=== PATIENT | male | born 2000 | race Caucasian/White ===

== ENCOUNTER 2020-01-03 20:34 | Emergency (ER) | payer SELFPAY ==
[2020-01-03 21:17] LABS: Absolute Lymphocytes (CBC) 1.8 K/uL (0.7-4.9); Basophils % 0.4 % (0-1.3); Hematocrit 43.4 % (39.6-49.0); Lymphocytes % 25.5 % (15.3-44.8)
[2020-01-03 21:33] LABS: ALT/SGPT 20 U/L (12-78); AST/SGOT 14 U/L (15-37); Albumin 4.6 g/dL (3.4-5.0); Alkaline Phosphatase 75 U/L (45-117); BUN Blood Urea Nitrogen 10 mg/dL (7-18); Bicarbonate 27 mmol/L (21-32); Bilirubin Direct 0.2 mg/dL (0-0.2); Bilirubin Total 0.9 mg/dL (0.2-1.0); Glucose Level 96 mg/dL (74-106); Lipase 52 U/L (73-393); Magnesium 1.9 mg/dL (1.8-2.4); Phosphorus 2.7 mg/dL (2.5-4.9); Potassium 3.9 mmol/L (3.5-5.1); Protein, Total 7.8 g/dL (6.4-8.2); Sodium Level 141 mmol/L (136-145)
[2020-01-03] MEDS ORDERED: NA CHLORIDE 0.9% 1,000 ML ONE (21:43)
[2020-01-03] MEDS ORDERED: NA CHLORIDE 0.9% 50 ML IV ONE (21:44)
[2020-01-03] MEDS ORDERED: PROMETHAZINE INJ 25 MG/ML AMP ONE (21:45)
--- NOTE | 2020-01-04 00:13 | ER ---
Nurse's Notes [facility] Name: Julio Cesar Gandara Age: 19 yrs Sex: Male : 2000 Arrival Date: 01/03/2020 Time: 20:36 Bed 18 Private MD: Diagnosis: Enteritis, unspecified Presentation: 01/02 20:45 Chief complaint: Patient states: "I have been waking up with horrible stomach pain. I vc can't keep anything down, I don't have much of an appetite and I have diarrhea, I thought it was just a stomach virus so I bought some over the counter nausea medicine but I and now on week 3.". Coronavirus screen: diarrhea, nausea, vomiting. Client presents with at least one sign or symptom that may indicate coronavirus-19. Standard/surgical mask placed on the client. Ebola Screen: No symptoms or risks identified at this time. Initial Sepsis Screen: Does the patient meet any 2 criteria? No. Patient's initial sepsis screen is negative. Does the patient have a suspected source of infection? No. Patient's initial sepsis screen is negative. Risk Assessment: Do you want to hurt yourself or someone else? Patient reports no desire to harm self or others. Onset of symptoms is unknown. 20:45 Method Of Arrival: Ambulatory vc 20:45 Acuity: RISSA 3 vc Triage Assessment: 20:49 General: Appears in no apparent distress. comfortable, slender, Behavior is calm, vc cooperative, appropriate for age. Pain: Complains of pain in right lower quadrant and left lower quadrant Pain does not radiate. Pain currently is 5 out of 10 on a pain scale. at worst was 8 out of 10 on a pain scale. Quality of pain is described as crampy, sharp, squeezing, Pain began 3 weeks ago. GI: Reports lower abdominal pain, diarrhea, intolerance of fluids, intolerance of food, nausea, vomiting. Historical: - Allergies: 20:49 No Known Allergies; vc - Home Meds: 20:49 None [Active]; vc - PMHx: 20:49 None; vc - PSHx: 20:49 None; vc - Immunization history:: Adult Immunizations up to date. - Social history:: Smoking status: Reported history of juuling and/or vaping. Patient uses street drugs, marijuana. Screenin:50 Abuse screen: Denies threats or abuse. Nutritional screening: Has had N/V for 3 or more vc days. Tuberculosis screening: No symptoms or risk factors identified. Fall Risk None identified. Assessment: 21:19 Reassessment: No changes from previously documented assessment. Patient is alert, mt2 oriented x 3, equal unlabored respirations, skin warm/dry/pink. General: Appears comfortable, Behavior is cooperative. Pain: Complains of pain in abdomen. Neuro: No deficits noted. Cardiovascular: No deficits noted. Respiratory: No deficits noted. GI: Bowel sounds present X 4 quads. Abdomen is tender to palpation Reports lower abdominal pain, diarrhea, nausea. : No deficits noted. EENT: No deficits noted. Derm: No deficits noted. 22:27 Reassessment: Patient and/or family updated on plan of care and expected duration. Pain mt2 level reassessed. Patient is alert, oriented x 3, equal unlabored respirations, skin warm/dry/pink. Patient states symptoms have improved. General: Appears in no apparent distress. Behavior is cooperative. 23:16 Reassessment: Patient and/or family updated on plan of care and expected duration. Pain mt2 level reassessed. Patient is alert, oriented x 3, equal unlabored respirations, skin warm/dry/pink. Patient denies pain at this time. General: Appears in no apparent distress. comfortable, Behavior is cooperative. 01/03 00:22 Reassessment: Patient and/or family updated on plan of care and expected duration. Pain mt2 level reassessed. Patient is alert, oriented x 3, equal unlabored respirations, skin warm/dry/pink. Patient states symptoms have improved. General: Appears in no apparent distress. comfortable, Behavior is calm, cooperative. Pain: Denies pain. Vital Signs: 01/02 20:45 BP 145 / 86; Pulse 90; Resp 14; Temp 98.6(O); Pulse Ox 100% on R/A; Weight 61.23 kg; vc Height 6 ft. 3 in. (190.50 cm); Pain 5/10; 21:35 BP 119 / 67; Pulse 81; Resp 16; Pulse Ox 97% ; Pain 4/10; mt2 22:29 BP 116 / 66; Pulse 79; Resp 16; Pulse Ox 98% ; Pain 0/10; mt2 23:16 BP 114 / 63; Pulse 68; Resp 16; Pulse Ox 99% on R/A; Pain 0/10; mt2 01/03 00:22 BP 114 / 70; Pulse 67; Resp 16; Pulse Ox 98% ; Pain 0/10; mt2 01/02 20:45 Body Mass Index 16.87 (61.23 kg, 190.50 cm) vc ED Course: 01/02 20:36 Patient arrived in ED. cl3 20:43 Aviva Anderson RN is Primary Nurse. mt2 20:48 Charity Johnston FNP-C is PHCP. snw 20:48 Silviano Kent MD is Attending Physician. snw 20:48 Triage completed. vc 20:50 Arm band placed on. vc 20:51 Patient has correct armband on for positive identification. Bed in low position. Call vc light in reach. Pulse ox on. NIBP on. 21:21 Oral contrast given. eh 21:29 Initial lab(s) drawn, by ky, sent to lab. Inserted saline lock: 20 gauge in right mt2 antecubital area, using aseptic technique. Blood collected. 23:43 CT Abd/Pelvis - PO and IV Contrast In Process Unspecified. EDMS 08 00:24 No provider procedures requiring assistance completed. IV discontinued, intact, mt2 bleeding controlled, No redness/swelling at site. Pressure dressing applied. Administered Medications: 01/02 21:30 Drug: NS 0.9% 1000 ml Route: IV; Rate: 1 bolus; Site: right antecubital; mt2 22:30 Follow up: Response: No adverse reaction; IV Status: Completed infusion mt2 21:30 Drug: Phenergan 12.5 mg Route: IVP; Site: right antecubital; mt2 22:00 Follow up: Response: No adverse reaction; Nausea is decreased mt2 01/03 00:37 Drug: Bentyl 20 mg Route: PO; mt2 00:37 Follow up: Response: Medication administered at discharge. mt2 00:37 Drug: Flagyl 500 mg Route: PO; mt2 00:37 Follow up: Response: No adverse reaction; Medication administered at discharge. mt2 Outcome: 00:12 Discharge ordered by . snw 00:25 Discharged to home ambulatory. mt2 00:25 Condition: stable 00:25 Discharge instructions given to patient, Instructed on discharge instructions, follow up and referral plans. medication usage, Demonstrated understanding of instructions, follow-up care, medications. 00:41 Patient left the ED. mt2 Signatures: Dispatcher [employer] Charity Lugo, REE CENTRIFUGAL EXTRACTOR OPERATOR-Gabyw Balwinder Olea Charde cl3 Sosa Lubin RN RN vc Aviva Anderson RN RN mt2
--- NOTE | 2020-01-04 00:13 | EDPHYS ---
Physician Documentation [facility] Name: Julio Cesar Gandara Age: 19 yrs Sex: Male : 2000 Arrival Date: 01/03/2020 Time: 20:36 Bed 18 Private MD: ED Physician Silviano Kent HPI: 01/02 22:01 This 19 yrs old Male presents to ER via Ambulatory with complaints of snw Abdominal Pain, Nausea/Vomiting/Diarrhea. 22:01 The patient presents with abdominal pain in the lower abdomen. Onset: The snw symptoms/episode began/occurred suddenly, and became persistent. The symptoms do not radiate. Associated signs and symptoms: Pertinent positives: nausea, vomiting, and diarrhea. The symptoms are described as burning, steady. Modifying factors: The symptoms are alleviated by nothing, the symptoms are aggravated by food. Severity of pain: At its worst the pain was moderate in the emergency department the pain is unchanged. The patient has not experienced similar symptoms in the past. The patient has not recently seen a physician. pt with pain to lower abd x 3 weeks. Historical: - Allergies: 20:49 No Known Allergies; vc - Home Meds: 20:49 None [Active]; vc - PMHx: 20:49 None; vc - PSHx: 20:49 None; vc - Immunization history:: Adult Immunizations up to date. - Social history:: Smoking status: Reported history of juuling and/or vaping. Patient uses street drugs, marijuana. ROS: 22:01 Eyes: Negative for injury, pain, redness, and discharge, ENT: Negative for injury, snw pain, and discharge, Neck: Negative for injury, pain, and swelling, Cardiovascular: Negative for chest pain, palpitations, and edema, Respiratory: Negative for shortness of breath, cough, wheezing, and pleuritic chest pain, Back: Negative for injury and pain, : Negative for injury, bleeding, discharge, and swelling, MS/Extremity: Negative for injury and deformity, Skin: Negative for injury, rash, and discoloration, Neuro: Negative for headache, weakness, numbness, tingling, and seizure, Psych: Negative for depression, anxiety, suicide ideation, homicidal ideation, and hallucinations. 22:01 Constitutional: Positive for body aches. 22:01 Abdomen/GI: Positive for abdominal pain, nausea, vomiting, and diarrhea. Exam: 22:01 Constitutional: This is a well developed, well nourished patient who is awake, alert, snw and in no acute distress. Head/Face: Normocephalic, atraumatic. Eyes: Pupils equal round and reactive to light, extra-ocular motions intact. Lids and lashes normal. Conjunctiva and sclera are non-icteric and not injected. Cornea within normal limits. Periorbital areas with no swelling, redness, or edema. ENT: Nares patent. No nasal discharge, no septal abnormalities noted. Tympanic membranes are normal and external auditory canals are clear. Oropharynx with no redness, swelling, or masses, exudates, or evidence of obstruction, uvula midline. Mucous membranes moist. Neck: Trachea midline, no thyromegaly or masses palpated, and no cervical lymphadenopathy. Supple, full range of motion without nuchal rigidity, or vertebral point tenderness. No Meningismus. Chest/axilla: Normal chest wall appearance and motion. Nontender with no deformity. No lesions are appreciated. Cardiovascular: Regular rate and rhythm with a normal S1 and S2. No gallops, murmurs, or rubs. Normal PMI, no JVD. No pulse deficits. Respiratory: Lungs have equal breath sounds bilaterally, clear to auscultation and percussion. No rales, rhonchi or wheezes noted. No increased work of breathing, no retractions or nasal flaring. Abdomen/GI: Soft, non-tender, with normal bowel sounds. No distension or tympany. No guarding or rebound. No evidence of tenderness throughout. Back: No spinal tenderness. No costovertebral tenderness. Full range of motion. Skin: Warm, dry with normal turgor. Normal color with no rashes, no lesions, and no evidence of cellulitis. MS/ Extremity: Pulses equal, no cyanosis. Neurovascular intact. Full, normal range of motion. Neuro: Awake and alert, GCS 15, oriented to person, place, time, and situation. Cranial nerves II-XII grossly intact. Motor strength 5/5 in all extremities. Sensory grossly intact. Cerebellar exam normal. Normal gait. Psych: Awake, alert, with orientation to person, place and time. Behavior, mood, and affect are within normal limits. Vital Signs: 20:45 BP 145 / 86; Pulse 90; Resp 14; Temp 98.6(O); Pulse Ox 100% on R/A; Weight 61.23 kg; vc Height 6 ft. 3 in. (190.50 cm); Pain 5/10; 21:35 BP 119 / 67; Pulse 81; Resp 16; Pulse Ox 97% ; Pain 4/10; mt2 22:29 BP 116 / 66; Pulse 79; Resp 16; Pulse Ox 98% ; Pain 0/10; mt2 23:16 BP 114 / 63; Pulse 68; Resp 16; Pulse Ox 99% on R/A; Pain 0/10; mt2 01/03 00:22 BP 114 / 70; Pulse 67; Resp 16; Pulse Ox 98% ; Pain 0/10; mt2 01/02 20:45 Body Mass Index 16.87 (61.23 kg, 190.50 cm) vc MDM: 01/02 21:10 Patient medically screened. snw 23:31 Data reviewed: vital signs, nurses notes. Data interpreted: Pulse oximetry: on room air snw is 99 %. Interpretation: normal. Counseling: I had a detailed discussion with the patient and/or guardian regarding: the historical points, exam findings, and any diagnostic results supporting the discharge/admit diagnosis, the presence of at least one elevated blood pressure reading (>120/80) during this emergency department visit, lab results, pt to radiology for CT via w/c. 01/02 20:51 Order name: Basic Metabolic Panel; Complete Time: 21:39 snw 01/02 20:51 Order name: CBC with Diff; Complete Time: 21:28 snw 01/02 20:51 Order name: Hepatic Function; Complete Time: 21:39 snw 01/02 20:51 Order name: Lipase; Complete Time: 21:39 snw 01/02 20:51 Order name: Phosphorus; Complete Time: 21:39 snw 01/02 20:51 Order name: Magnesium; Complete Time: 21:39 snw 01/02 20:51 Order name: IV Saline Lock; Complete Time: 21:32 snw 01/02 20:51 Order name: Labs collected and sent; Complete Time: 21:32 snw 01/02 20:51 Order name: CT Abd/Pelvis - PO and IV Contrast snw Administered Medications: 21:30 Drug: NS 0.9% 1000 ml Route: IV; Rate: 1 bolus; Site: right antecubital; mt2 22:30 Follow up: Response: No adverse reaction; IV Status: Completed infusion mt2 21:30 Drug: Phenergan 12.5 mg Route: IVP; Site: right antecubital; mt2 22:00 Follow up: Response: No adverse reaction; Nausea is decreased mt2 01/03 00:37 Drug: Bentyl 20 mg Route: PO; mt2 00:37 Follow up: Response: Medication administered at discharge. mt2 00:37 Drug: Flagyl 500 mg Route: PO; mt2 00:37 Follow up: Response: No adverse reaction; Medication administered at discharge. mt2 Disposition: 06:39 Co-signature as Attending Physician, Silviano Kent MD I agree with the assessment and tw4 plan of care. Disposition: 01/04/20 00:12 Discharged to Home. Impression: Enteritis, unspecified. - Condition is Stable. - Discharge Instructions: Abdominal Pain, Adult, Food Choices to Help Relieve Diarrhea, Adult, Cyclic Vomiting Syndrome, Pediatric, Chronic Diarrhea. - Prescriptions for Bentyl 20 mg Oral Tablet - take 1 tablet by ORAL route every 6 hours As needed; 20 tablet. Flagyl 500 mg Oral Tablet - take 1 tablet by ORAL route every 12 hours for 7 days; 14 tablet. - Medication Reconciliation Form, Thank You Letter, Antibiotic Education, Prescription Opioid Use form. - Follow up: Emergency Department; When: As needed; Reason: Worsening of condition. Follow up: Private Physician; When: 2 - 3 days; Reason: Recheck today's complaints, Continuance of care, Re-evaluation by your physician. Signatures: Dispatcher [employer] Charity Johnston, DWIGHT-C LEAD JAVA PROGRAMMER-Csnw Silviano Kent MD MD tw4 Sosa Lubin RN RN Aviva Anderson RN RN mt2 Corrections: (The following items were deleted from the chart) 00:41 00:12 01/04/2020 00:12 Discharged to Home. Impression: Enteritis, unspecified. mt2 Condition is Stable. Forms are Medication Reconciliation Form, Thank You Letter, Antibiotic Education, Prescription Opioid Use. Follow up: Emergency Department; When: As needed; Reason: Worsening of condition. Follow up: Private Physician; When: 2 - 3 days; Reason: Recheck today's complaints, Continuance of care, Re-evaluation by your physician. snw
[2020-01-04] MEDS ORDERED: metroNIDAZOLE 500 MG TABLET ONE (00:43)
[2020-01-04] MEDS ORDERED: DICYCLOMINE HCL 10 MG CAP ONE (00:44)
[2020-01-04 01:16] VITALS: TEMP 98.6
[2020-01-04 01:22] VITALS: BP 114/70; O2SAT 98
--- NOTE | 2020-01-04 12:14 | RAD REPORT ---
EXAM DESCRIPTION: CT - Abdomen Pelvis W Contrast - 01/04/2020 4:20 am CLINICAL HISTORY: Abdominal pain TECHNIQUE: Contiguous axial images obtained through the abdomen and pelvis following the uneventful administration of IV contrast. Coronal and sagittal reformatted images were provided. This exam was performed according to our departmental dose-optimization program, which includes autom ated exposure control, adjustment of the mA and/or kV according to patient size and/or use of iterati ve reconstruction technique. COMPARISON: None available for comparison. FINDINGS: Lung bases: Clear Liver: Unremarkable Gallbladder and biliary system: Unremarkable Pancreas: Unremarkable Spleen: Unremarkable Adrenals: Unremarkable Kidneys: Normal renal cortical enhancement. No calculi. No hydronephrosis. Bowel: Small bowel or abdomen and pelvis appears somewhat thickened. No obstruction. Appendix: Normal caliber appendix. No findings to suggest acute appendicitis. Urinary bladder: Unremarkable Reproductive: Unremarkable as visualized Lymph nodes: No pathologically enlarged lymph nodes. Peritoneum: No focal fluid collection. No free air. Vessels: No abdominal aortic aneurysm. Abdominal wall: Unremarkable Bones: Unremarkable IMPRESSION: Findings which may be related to mild nonspecific enteritis. Electronically signed by: Rico Barahona MD 01/03/2020 11:54 PM CDT Due to temporary technical issues with the PACS/Fluency reporting system, reports are being signed by the in house radiologist without review as a courtesy to ensure prompt reporting. The interpreting r adiologist is fully responsible for the content of the report.
== END 2020-01-04 00:41 | disposition home or self-care (01) ==
LOC: ER 20:34
DX: K52.9 Noninfective gastroenteritis and colitis, unspecified (principal); Z87.891 Personal history of nicotine dependence
CPT/HCPCS: 36415; 74177; 80048; 80076; 83690; 83735; 84100; 85025; 96361; 96374; 99284; J2550; J7030; Q9967